=== PATIENT | female | born 1965 | race Two or more races ===

== ENCOUNTER 2020-11-19 13:33 | Outpatient (CLI) | payer OTHER | END 2020-11-19 14:42 | disposition home or self-care (01) | LOC: RAD 13:33 | PROVIDERS: ATTEND Internal Medicine Endocrinology, Diabetes & Metabolism | DX: M19.049 Primary osteoarthritis, unspecified hand (principal) ==

== ENCOUNTER 2021-10-09 10:15 | Outpatient (CLI) | payer OTHER | END 2021-10-09 10:16 | disposition home or self-care (01) | LOC: RAD 10:15 | DX: M25.551 Pain in right hip (principal) ==

== ENCOUNTER → 2024-05-16 | Emergency (ER) | payer OTHER ==
[~2024-05-16] VITALS: Ht 175.3 cm; Wt 68.0 kg
[~2024-05-16] MED LIST: SYNTHROID75 MCG
== END | disposition left against medical advice (07) ==
LOC: ER 19:26
DX: Z53.21 Procedure and treatment not carried out due to patient leaving prior to being seen by health care provider (principal)